=== PATIENT | male | born 1940 | race Caucasian/White ===

== ENCOUNTER → 2019-12-21 | Outpatient (CLI) | payer MEDICARE, OTHER ==
--- NOTE | 2019-12-26 09:05 | REP ---
LEFT WRIST SERIES: 4-VIEWS HISTORY: Wrist pain. FINDINGS: Four views of the left wrist show severe osteoarthritis most pronounced in the radionavicular articulation. There is marked widening of the naviculolunate ligament with collapse of the carpal row and abutment between the distal radius and the proximal pole of the capitate. There is also navicular multangular osteoarthritic change. Chondrocalcinosis is noted. Mild spurring is seen in the distal radial ulnar articulation. There is fragmented spurring of the radial styloid. Subcortical cyst formation is seen in the triquetrum and lunate. Subcortical cyst formation is seen in the navicular bone as well. 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 Widening of the naviculolunate interval. There is soft tissue swelling. No acute fracture is appreciated. Fragmented radial styloid spurring. MTDD
--- NOTE | 2019-12-26 09:06 | REP ---
LEFT KNEE SERIES: 5-VIEWS HISTORY: Injury to medial aspect of the knee. Pain. FINDINGS: Five views of the left knee demonstrate moderate medial, lateral, and patellofemoral compartment osteoarthritis. Joint space narrowing is seen medially and in the patellofemoral compartment. There is chondrocalcinosis. No fracture is seen. Some vascular calcification is noted. Lateral view shows evidence of a joint effusion. IMPRESSION: Three compartment osteoarthritis. No fracture is seen. Probable joint effusion. MTDD
== END ==
LOC: M WUC 12:28
PROVIDERS: ATTEND Physician Assistant
DX: S60.212A Contusion of left wrist, initial encounter (principal); S80.02XA Contusion of left knee, initial encounter; X58.XXXA Exposure to other specified factors, initial encounter; Y92.89 Other specified places as the place of occurrence of the external cause; M17.12 Unilateral primary osteoarthritis, left knee; M19.032 Primary osteoarthritis, left wrist